=== PATIENT | male | born 1970 | race Caucasian/White ===

== ENCOUNTER 2018-09-11 06:02 | Day surgery (SDC) | payer OTHER ==
[~2018-09-11] VITALS: Ht 177.8 cm; Wt 87.1 kg
[~2018-09-11 06:02] MED LIST: CLIN300 PO; EPIPEN0.3 MG/0.3 IM; ESOM20 PO; LISI5 PO; METCAR500 PO; MORPHINE PO; Norco 10-325 T1 EACH PO; OMEP10ER PO; SULTRIDS PO; [UNRECOGNIZED DRUG - REMARK]
--- NOTE | 2018-09-11 06:37 | NUR ---
Ambulatory in Day Surgery History, Chart, Medications and Allergies reviewed before start of procedure.Lungs clear T/O to Auscultation. Patient States Post-Procedure ride home has been arranged.
--- NOTE | 2018-09-11 09:22 | NUR ---
CLEARING THROAT, DRINKING APPLE JUICE, FACE FLUSHED, EYES RED AND WATERING. PT ASKING TO BE ABLE TO COUGH. TOWEL ROLLED AND PLACED OVER INCISION, PRESSURE HELD, COUGHS, NO DIFF/PROB AT INCISION SITE. CONT TO CLEAR THROAT.
--- NOTE | 2018-09-11 10:07 | NUR ---
1000 PT HAS TOLERATED PO JUICE, NORCO X2 W/O C/O NAUSEA. INSTRUCTED ON SPLINTING/PRESSURE TO INCISIOINAL SITE TO DECREASE PAIN WITH COUGH EFFORT. ICE THERAPY. CONSIDER INCLUDING NSAIDS BETWEEN DOSES OF NORCO. PT HAD CONCERNS THAT MEDICATIONS PRESCRIBED AND NORCO 10/325 THAT HE TAKES AT HOME WOULD NOT BE SUFFICIENT TO ALEVIATE PAIN. PAIN CONTROL STRATEGIES DISCUSSED AND REVIEWED MULTIPLE TIMES WITH PT/S.O. Patient up to Ambulate independently. Gait steady. Dressing to procedure site clean, dry, intact with no visible drainage, swelling, erythema or bruising noted. Discharge instructions reviewed with patient. Patient verbalizes understanding. Copy given to patient to take home. Patient States Post-Procedure ride home has been arranged. Discharged via wheelchair to private car for ride home.
== END 2018-09-11 22:40 | disposition home or self-care (01) ==
LOC: ORSCMMR 06:02 → ORD 07:30 → ORSCMMR 07:30
PROVIDERS: Surgery
PROC: 0YU50JZ Supplement Right Inguinal Region with Synthetic Substitute, Open Approach (ICD-10-PCS; principal; 2018-09-11 07:30)
DX: K40.90 Unilateral inguinal hernia, without obstruction or gangrene, not specified as recurrent (principal); I10 Essential (primary) hypertension; Z79.899 Other long term (current) drug therapy; Z87.891 Personal history of nicotine dependence
CPT/HCPCS: C1781; J0330; J0360; J0690; J1100; J1885; J2060; J2250; J2405; J3010; J7120

== ENCOUNTER 2019-05-14 08:06 | Day surgery (SDC) | payer OTHER ==
[~2019-05-14] VITALS: Ht 182.9 cm; Wt 87.9 kg
--- NOTE | 2019-05-14 12:33 | NUR ---
05/14/19 1233 MAX MCKEON IV WAS IN RIGHT HAND, NOT LEFT. ORSC.BI ERROR. WONT LET ME FIX LOCATION ON MEDS SITE.
== END 2019-05-14 10:13 | disposition home or self-care (01) ==
LOC: ORSCSDS 08:06
PROVIDERS: Internal Medicine Gastroenterology
PROC: 0DBL8ZX Excision of Transverse Colon, Via Natural or Artificial Opening Endoscopic, Diagnostic (ICD-10-PCS; principal; 2019-05-14 09:15)
PROC: 0DBH8ZX Excision of Cecum, Via Natural or Artificial Opening Endoscopic, Diagnostic (ICD-10-PCS; principal; 2019-05-14 09:15)
PROC: 0DBN8ZX Excision of Sigmoid Colon, Via Natural or Artificial Opening Endoscopic, Diagnostic (ICD-10-PCS; principal; 2019-05-14 09:15)
DX: Z12.11 Encounter for screening for malignant neoplasm of colon (principal); D12.0 Benign neoplasm of cecum; D12.3 Benign neoplasm of transverse colon; D12.5 Benign neoplasm of sigmoid colon; K57.30 Diverticulosis of large intestine without perforation or abscess without bleeding; K64.8 Other hemorrhoids; K21.9 Gastro-esophageal reflux disease without esophagitis; E11.9 Type 2 diabetes mellitus without complications; F17.220 Nicotine dependence, chewing tobacco, uncomplicated; Z79.899 Other long term (current) drug therapy
CPT/HCPCS: 88305; J2405; J2704; J7120

== ENCOUNTER → 2022-10-14 | Outpatient (CLI) | payer BC | END | disposition home or self-care (01) | LOC: LAB SHORT 14:04 → PLD 14:04 | DX: L82.1 Other seborrheic keratosis (principal) | CPT/HCPCS: 88305 ==

== ENCOUNTER 2023-03-20 07:44 | Day surgery (SDC) | payer BC ==
[~2023-03-20] VITALS: Ht 182.9 cm; Wt 96.0 kg
[2023-03-20] MEDS ORDERED: ESOM20 (08:08)
[2023-03-20] MEDS ORDERED: Prinivil10 MG (08:08)
[2023-03-20 13:16] VITALS: BP 132/100
== END 2023-03-20 11:05 | disposition home or self-care (01) ==
LOC: ORSCSDS 07:44
PROVIDERS: Student in an Organized Health Care Education/Training Program
PROC: 0DBL8ZX Excision of Transverse Colon, Via Natural or Artificial Opening Endoscopic, Diagnostic (ICD-10-PCS; principal; 2023-03-20 09:30)
PROC: 0DBM8ZX Excision of Descending Colon, Via Natural or Artificial Opening Endoscopic, Diagnostic (ICD-10-PCS; principal; 2023-03-20 09:30)
PROC: 0DB78ZX Excision of Stomach, Pylorus, Via Natural or Artificial Opening Endoscopic, Diagnostic (ICD-10-PCS; principal; 2023-03-20 09:30)
PROC: 0DB58ZX Excision of Esophagus, Via Natural or Artificial Opening Endoscopic, Diagnostic (ICD-10-PCS; principal; 2023-03-20 09:30)
PROC: 0DBN8ZX Excision of Sigmoid Colon, Via Natural or Artificial Opening Endoscopic, Diagnostic (ICD-10-PCS; principal; 2023-03-20 09:30)
DX: K21.9 Gastro-esophageal reflux disease without esophagitis (principal); Z12.11 Encounter for screening for malignant neoplasm of colon; Z86.010 Personal history of colon polyps; K29.70 Gastritis, unspecified, without bleeding; K52.9 Noninfective gastroenteritis and colitis, unspecified; D12.3 Benign neoplasm of transverse colon; D12.4 Benign neoplasm of descending colon; D12.5 Benign neoplasm of sigmoid colon; I10 Essential (primary) hypertension; Z87.891 Personal history of nicotine dependence
CPT/HCPCS: 88305; 88342; J2250; J2704; J7120